=== PATIENT | male | born 1995 | race Asian ===

== ENCOUNTER 2016-12-17 18:10 | Emergency (ER) | payer BC ==
[~2016-12-17] VITALS: Ht 167.6 cm; Wt 70.2 kg
[2016-12-17 18:21] VITALS: Ht 167.6 cm; Wt 70.2 kg
[2016-12-17] MEDS ORDERED: PIPERACILLIN/TAZOBACTAM 4.5 GM/100ML D5W IV STA (20:12)
[2016-12-17] MEDS ORDERED: ACETAMINOPHEN IV 100 ML IV STA (20:12)
[2016-12-17] MEDS ORDERED: SODIUM CHLORIDE 0.9% 1000ML 1,000 ML IV STA ×3 (20:12→22:53)
[2016-12-17] MEDS ORDERED: ONDANSETRON INJ 2 MG/ML 2 ML VIAL IV STA (20:12)
[2016-12-17] MEDS ORDERED: MoRPHine SULFATE 4 MG/ML 1 ML CARP\\VIAL IV STA (20:12)
[2016-12-17] MEDS ORDERED: OPTIRAY 320 IV PRN (20:30)
--- NOTE | 2016-12-17 20:57 | EMERGENCY ROOM VISIT NOTE ---
History Report prepared by Mark: Dalton Leonard Under the Supervision of: Dr. Yakov Tanner M.D. First contact with patient: 20:00 Chief Complaint: ABDOMINAL PAIN Stated Complaint: LOW BACK PAIN,ABD PAIN Nursing Triage Summary: Pt states at 0445 woke up with really strong stomach cramp and diarrhea. 0800 had a tingling all over his body. Had similar tingling over the summer. Abd pain, lower middle abd Mid lower back pain. Denies cough. Denies urinary symtoms. History of Present Illness The patient is a 21 year old [place] male with a past medical history of psoriasis who presents to the ED with a cc of constant, lower, cramping, abdominal pain beginning early this morning. He currently rates his discomfort a 6/10 in severity. The patient states that he woke up at 0445 this morning with lower abdominal pain. He reports that after he woke up, he had a fever and intermittent diarrhea that prevented him from falling asleep easily. The patient notes that he was eventually able to fall asleep. He states that when he woke up to get ready for school, his lower back began to tingle. The patient reports that the tingling radiated to his arms. He notes that it lasted for about 6 hours, and he experienced discomfort after the tingling went away. The patient states that walking increased his discomfort, but he could tolerate it. He reports that he had similar symptoms before, but they were not as severe and did not last as long. The patient notes the first time he was able to urinate was when giving his sample. He states that he is currently taking medication for psoriasis. The patient reports that he occasionally consumes alcohol. He denies nausea, vomiting, recent travel, camping, being around others that are sick, cough, sorethroat, dysuria, hematuria, drug use, and tobacco use. Source of History: patient Onset: early this morning Position: abdomen (lower) Symptom Intensity: 6/10 Quality: cramping Timing: constant Modifying Factors (Worsening): movement Associated Symptoms: + fevers, No sorethroat, No cough, No nausea, No vomiting Note: Associated symptoms: tingling in his arms, decreased urination frequency Denies: recent travel, camping, being around others that are sick, dysuria, hematuria, drug use, and tobacco use. Review of Systems See HPI for pertinent positives and negatives. A total of ten systems were reviewed and were otherwise negative. Past Medical & Surgical Medical Problems: (1) Psoriasis Family History Patient reports no known family medical history. Social History Smoking Status: Never Smoker Smokeless Tobacco Use: No Alcohol Use: occasionally Drug Use: none Marital Status: single Occupation Status: [employer] student Current/Historical Medications Scheduled Ciprofloxacin Hcl (Cipro), 500 MG PO BID Metronidazole (Flagyl), 500 MG PO TID Ondasetron Odt (Zofran Odt), 4 MG SL Q6H Allergies Coded Allergies: No Known Allergies (Unverified , 12/17/16) Physical Exam Vital Signs Date Time Temp Pulse Resp B/P (MAP) Pulse Ox O2 Delivery O2 Flow Rate FiO2 12/18/16 00:46 82 18 100/52 96 12/18/16 00:35 87 12/17/16 23:17 37.0 98 18 101/72 96 Room Air 12/17/16 22:05 105 22 98 12/17/16 22:00 99 25 107/66 96 12/17/16 21:45 85 19 97 12/17/16 21:30 85 13 99/68 95 12/17/16 21:26 94/62 12/17/16 21:15 84 14 100 12/17/16 21:00 106 26 96 12/17/16 20:45 101 18 98 12/17/16 20:40 107 17 99 12/17/16 20:30 128/79 12/17/16 20:25 100 20 98 12/17/16 20:19 108 12/17/16 20:14 131/83 12/17/16 18:21 38.3 127 20 139/71 96 Room Air Physical Exam GENERAL: Awake, alert, well-appearing, NAD. Uncomfortable HENT: Normocephalic, atraumatic. EYES: Normal conjunctiva. Sclera non-icteric. NECK: Supple. No nuchal rigidity. FROM. RESPIRATORY: CTAB, no rhonchi, wheezing, crackles CARDIAC: Tachycardic rate and regular rhythm, no MRG ABDOMEN: Soft, ND, BS+. Suprapubic TTP, mild RLQ, negatie psoas and obturator. MSK: No chest wall TTP, no LE edema. Low T-spine TTP, no erythema, no caller, no fluctuantes. NEURO: GCS 15, CN 2-12 intact, moves all 4s on command SKIN: No rash or jaundice noted. Medical Decision & Procedures ER Provider Diagnostic Interpretation: Radiology results as stated below per my review and radiologist interpretation: CT OF THE ABDOMEN AND PELVIS WITH CONTRAST CLINICAL HISTORY: Periumbilical pain. Fever. Tachycardia. COMPARISON STUDY: None. TECHNIQUE: Following IV administration of 93 mL of Optiray-320, axial images of the abdomen and pelvis were obtained from the lung bases to the proximal femurs. Images were reviewed in the axial, sagittal, and coronal planes. IV contrast was administered without complication. A dose lowering technique was utilized adhering to the principles of ALARA. CT DOSE: 287.68 mGy.cm FINDINGS: Lung bases are clear. No pneumatosis, free air or portal venous gas is present. The liver, spleen, adrenal glands, kidneys and pancreas are normal. There is no evidence for a bowel obstruction. Portions of the colon are fluid-filled. The appendix is normal. There is mild wall thickening of the distal ileum. No abscess is identified. Major vasculature is patent within the abdomen and pelvis. There is no peripancreatic or pericholecystic infiltration. IMPRESSION: 1. Normal appendix. No bowel obstruction. 2. Mild wall thickening of the distal ileum. While this could be due to underdistention, the findings favor a nonspecific ileitis, likely infectious or inflammatory in etiology. 3. Fluid-filled colon which may reflect a diarrheal state. Electronically signed by: Natanael Solis M.D. 12/17/2016 10:41 PM Dictated Date/Time: 12/17/2016 10:34 PM Laboratory Results 12/17/16 21:20 Red Blood Count 5.27, Mean Corpuscular Volume 86.5, Mean Corpuscular Hemoglobin 31.3, Mean Corpuscular Hemoglobin Concent 36.2, Mean Platelet Volume 10.1, Neutrophils (%) (Auto) 77.4, Lymphocytes (%) (Auto) 9.2, Monocytes (%) (Auto) 12.7, Eosinophils (%) (Auto) 0.1, Basophils (%) (Auto) 0.4, Neutrophils # (Auto ) 6.42, Lymphocytes # (Auto) 0.76, Monocytes # (Auto) 1.05, Eosinophils # (Auto ) 0.01, Basophils # (Auto) 0.03 12/17/16 21:20 Test 12/17/16 21:20 12/17/16 21:25 12/17/16 23:50 White Blood Count 8.29 K/uL (4.8-10.8) Red Blood Count 5.27 M/uL (4.7-6.1) Hemoglobin 16.5 g/dL (14.0-18.0) Hematocrit 45.6 % (42-52) Mean Corpuscular Volume 86.5 fL (80-100) Mean Corpuscular Hemoglobin 31.3 pg (25-34) Mean Corpuscular Hemoglobin Concent 36.2 g/dl (32-36) Platelet Count 236 K/uL (130-400) Mean Platelet Volume 10.1 fL (7.4-10.4) Neutrophils (%) (Auto) 77.4 % Lymphocytes (%) (Auto) 9.2 % Monocytes (%) (Auto) 12.7 % Eosinophils (%) (Auto) 0.1 % Basophils (%) (Auto) 0.4 % Neutrophils # (Auto) 6.42 K/uL (1.4-6.5) Lymphocytes # (Auto) 0.76 K/uL (1.2-3.4) Monocytes # (Auto) 1.05 K/uL (0.11-0.59) Eosinophils # (Auto) 0.01 K/uL (0-0.5) Basophils # (Auto) 0.03 K/uL (0-0.2) RDW Standard Deviation 39.7 fL (36.4-46.3) RDW Coefficient of Variation 12.5 % (11.5-14.5) Immature Granulocyte % (Auto) 0.2 % Immature Granulocyte # (Auto) 0.02 K/uL (0.00-0.02) Anion Gap 9.0 mmol/L (3-11) Est Creatinine Clear Calc Drug Dose 95.8 ml/min Estimated GFR () 110.6 Estimated GFR (Non- 95.5 BUN/Creatinine Ratio 14.5 (10-20) Calcium Level 9.1 mg/dl (8.5-10.1) Total Bilirubin 0.5 mg/dl (0.2-1) Direct Bilirubin 0.2 mg/dl (0-0.2) Aspartate Amino Transf (AST/SGOT) 17 U/L (15-37) Alanine Aminotransferase (ALT/SGPT) 23 U/L (12-78) Alkaline Phosphatase 70 U/L (45-117) Total Protein 8.3 gm/dl (6.4-8.2) Albumin 4.4 gm/dl (3.4-5.0) Lipase 123 U/L (73-393) Urine Color DK YELLOW Urine Appearance CLEAR (CLEAR) Urine pH 5.0 (4.5-7.5) Urine Specific [place] 1.035 (1.000-1.030) Urine Protein NEG (NEG) Urine Glucose (UA) NEG (NEG) Urine Ketones 1+ (NEG) Urine Occult Blood TRACE (NEG) Urine Nitrite NEG (NEG) Urine Bilirubin NEG (NEG) Urine Urobilinogen NEG (NEG) Urine Leukocyte Esterase NEG (NEG) Urine WBC (Auto) 1-5 /hpf (0-5) Urine RBC (Auto) 5-10 /hpf (0-4) Urine Hyaline Casts (Auto) 1-5 /lpf (0-5) Urine Epithelial Cells (Auto) 0-5 /lpf (0-5) Urine Bacteria (Auto) NEG (NEG) Laboratory results reviewed by me Medications Administered Medications (Trade) Dose Ordered Sig/Sofya Route Start Time Stop Time Status Last Admin Dose Admin Sodium Chloride 1,000 ml @ 999 mls/hr Q1H1M STAT IV 12/17/16 20:12 12/17/16 21:12 DC 12/17/16 21:41 999 MLS/HR Ondansetron HCl (Zofran Inj) 4 mg NOW STAT IV 12/17/16 20:12 12/17/16 20:17 DC 12/17/16 21:42 4 MG Morphine Sulfate (MoRPHine SULFATE INJ) 4 mg NOW STAT IV 12/17/16 20:12 12/17/16 20:17 DC 12/17/16 21:44 4 MG Piperacillin Sod/ Tazobactam Sod (Zosyn Iv) 4.5 gm NOW STAT IV 12/17/16 20:12 12/17/16 20:17 DC 12/17/16 21:46 4.5 GM Sodium Chloride 1,000 ml @ 999 mls/hr Q1H1M STAT IV 12/17/16 20:12 12/17/16 21:12 DC 12/17/16 21:41 999 MLS/HR Acetaminophen 100 ml @ 400 mls/hr ONE STAT IV 12/17/16 20:12 12/17/16 20:26 DC 12/17/16 22:11 400 MLS/HR Sodium Chloride 1,000 ml @ 999 mls/hr Q1H1M STAT IV 12/17/16 22:53 12/17/16 23:53 DC 12/17/16 23:13 999 MLS/HR ED Course 2002: The patient was evaluated in room B10. A complete history and physical exam was performed. 2217: I reevaluated the patient and updated him of current exam findings. He is feeling better. 2253: I reevaluated the patient. He states that he thinks he has a family history of bowel obstructions. 0006: I reevaluated the patient. He looks well and feels better. I am waiting for his heart rate to decrease. 0029: I reevaluated the patient. Discussed results and discharge instructions: he verbalized understanding and agreement. The patient is ready for discharge. Medical Decision The patient is a 21 year old [place] male with a past medical history of psoriasis who presents to the ED with a cc of constant, lower, cramping, abdominal pain beginning early this morning. Differential diagnosis includes: pyelonephritis, kidney stone, obstructing stone, appendicitis, bowel obstruction. Patient was seen and evaluated. Patient did have some midline back pain however had no step-offs no erythema or calor. Patient did not have a history of IV drug abuse and had no lower extremity weakness numbness or tingling. Patient's abdomen was mildly tender over the suprapubic area. Patient had a CT as well as labs. Patient initially did have blood cultures as well as Zosyn empirically given given his tachycardia fever and abdominal pain. Patient was given 2 L of IV fluids patient's pain was significantly improved. Patient had a normal white count. Patient's UA did show some blood in the urine but no other signs of infection. Patient was given additional IV fluid patient was given by mouth which she tolerated without difficulty. Patient did have a little pressure of about 100/50. Patient however did not have any tachycardia. Patient had tolerated by mouth and was also given 3 L of fluid. Patient was told he had any worsening symptoms to return but at time of reevaluation patient was feeling much improved and wanting to go home. Patient no longer afebrile no longer tachycardic. On further questioning patient did admit that he had a family history of inflammatory bowel disease as his brother was recently diagnosed with Crohn's. Patient was able to give us a stool sample which was sent off for stool studies. The patient was feeling much improved and his tachycardia improved. Patient was told to hydrate well. Patient was also given follow-up with GI and told to follow up as an outpatient. Patient was also told to take Tylenol and Motrin in addition to the antibiotics as prescribed. Patient was given strict follow-up, discharge, return precautions. Patient agreed with care and patient was safely discharged home. Impression Primary Impression: Infectious colitis Additional Impression: Fever Scribe Attestation The scribe's documentation has been prepared under my direction and personally reviewed by me in its entirety. I confirm that the note above accurately reflects all work, treatment, procedures, and medical decision making performed by me. Departure Information Dispostion Home / Self-Care Prescriptions Metronidazole (FLAGYL) 500 Mg Tab 500 MG PO TID for 7 Days, #21 TAB Prov: Yakov Tanner M.D. 12/18/16 Ciprofloxacin Hcl (CIPRO) 500 Mg Tab 500 MG PO BID for 7 Days, #14 TAB Prov: Yakov Tanner M.D. 12/18/16 Ondasetron Odt (ZOFRAN ODT) 4 Mg Tab 4 MG SL Q6H for Nausea, #6 TAB Prov: Yakov Tanner M.D. 12/18/16 Referrals No Doctor, Assigned (PCP) Citlali Taveras M.D. [facility] Forms HOME CARE DOCUMENTATION FORM, IMPORTANT VISIT INFORMATION, School Instructions Return To School: 2 days Patient Instructions ED Colitis Ulcerative, My [facility] Additional Instructions Please return to the emergency department if you have worsening or recurrent symptoms not amenable to at-home treatment. Please call for a follow-up appointment with her primary care physician. Please take your medications as prescribed. If you have other concerns and/or complaints please feel free to also call your primary care physician's office or return the ED for further evaluation, management, and treatment. You may take Motrin ibuprofen 800 mg every 6 hours but no more than 3 200 hours in a given day. Please take with food and do not take for more than 2 consecutive days. He may take Tylenol 1000 mg every 6 hours up to 4000 mg in a 24-hour period. Please continue to hydrate and avoid things that may urinate which would include caffeinated beverages and alcohol. School Instructions Return To School: 2 days Problem Qualifiers Additional Impression: Fever Fever type: unspecified Qualified Codes: R50.9 - Fever, unspecified
[2016-12-17 21:40] LABS: BASO % 0.4 %; BASO ABS # 0.03 K/uL (0-0.2); COMPLETE YES; EOS % 0.1 %; HEMATOCRIT 45.6 % (42-52); IG% 0.2 %; LYMPH % 9.2 %; LYMPH ABS # 0.76 K/uL (1.2-3.4); MEAN CELL VOLUME 86.5 fL (80-100); MEAN CORPUSCULAR HEMOGLOBIN 31.3 pg (25-34); MEAN CORPUSCULAR HGB CONC 36.2 g/dl (32-36); MEAN PLATELET VOLUME 10.1 fL (7.4-10.4); MONO % 12.7 %; NEUT % 77.4 %; PLATELET COUNT 236 K/uL (130-400); RED BLOOD COUNT 5.27 M/uL (4.7-6.1); WHITE BLOOD COUNT 8.29 K/uL (4.8-10.8)
[2016-12-17 21:47] LABS: URINE APPEARANCE CLEAR (CLEAR); URINE COLOR DK YELLOW; URINE EPITHELIAL CELL AUTO 0-5 /lpf (0-5); URINE NITRITE NEG (NEG); URINE SPECIFIC GRAVITY 1.035 (1.000-1.030); UROBILINOGEN NEG (NEG); ZZUR CULT IF INDIC CLEAN CATCH NO
[2016-12-17 21:52] LABS: MANUAL MICROSCOPIC REQUIRED? NO; REVIEW REQ? NO; URINE BILIRUBIN NEG (NEG)
[2016-12-17 21:57] LABS: BUN/CREATININE RATIO 14.5 (10-20); CALCIUM 9.1 mg/dl (8.5-10.1); CREATININE 1.1 mg/dl (0.60-1.40); POTASSIUM 3.5 mmol/L (3.5-5.1)
--- NOTE | 2016-12-17 22:42 | DIAGNOSTIC IMAGING REPORT ---
CT OF THE ABDOMEN AND PELVIS WITH CONTRAST CLINICAL HISTORY: Periumbilical pain. Fever. Tachycardia. COMPARISON STUDY: None. TECHNIQUE: Following IV administration of 93 mL of Optiray-320, axial images of the abdomen and pelvis were obtained from the lung bases to the proximal femurs. Images were reviewed in the axial, sagittal, and coronal planes. IV contrast was administered without complication. A dose lowering technique was utilized adhering to the principles of ALARA. CT DOSE: 287.68 mGy.cm FINDINGS: Lung bases are clear. No pneumatosis, free air or portal venous gas is present. The liver, spleen, adrenal glands, kidneys and pancreas are normal. There is no evidence for a bowel obstruction. Portions of the colon are fluid-filled. The appendix is normal. There is mild wall thickening of the distal ileum. No abscess is identified. Major vasculature is patent within the abdomen and pelvis. There is no peripancreatic or pericholecystic infiltration. IMPRESSION: 1. Normal appendix. No bowel obstruction. 2. Mild wall thickening of the distal ileum. While this could be due to underdistention, the findings favor a nonspecific ileitis, likely infectious or inflammatory in etiology. 3. Fluid-filled colon which may reflect a diarrheal state. Electronically signed by: Natanael Solis M.D. 12/17/2016 10:41 PM Dictated Date/Time: 12/17/2016 10:34 PM
[2016-12-17 23:17] VITALS: TEMP 37
[2016-12-18] MEDS ORDERED: METR500T PO (00:24)
[2016-12-18] MEDS ORDERED: CIPR-255 PO (00:24)
[2016-12-18] MEDS ORDERED: ONDA4TAB10 SL (00:24)
[2016-12-18 00:46] VITALS: BP 100/52; PULSE 82; O2SAT 96
[2016-12-19 17:12] LABS: O&P GIARDIA AG NOT DETECTED (NOT DETECTED)
== END 2016-12-18 00:47 | disposition home or self-care (01) ==
LOC: C.EDB 18:12
DX: A09 Infectious gastroenteritis and colitis, unspecified (principal); R50.9 Fever, unspecified; R00.0 Tachycardia, unspecified; L40.9 Psoriasis, unspecified

== ENCOUNTER → 2017-06-10 | Outpatient (CLI) | payer BC ==
[~2017-06-10] MED LIST: CIPR-255 PO; ONDA4TAB10 SL
--- NOTE | 2017-06-11 06:27 | PAP/PSG TECHNICIAN REPORT ---
[facility] Hand Packer/Packager Polysomnogram Report Study name: None Report date: 06/11/2017 Study date: 06/10/2017 Referring Physician: DR. JCARLOS GUZMÁN Name: HENRY CALVERT Interpreting Physician: Alhaji Louis D.O. Date of : 1995 Hand Packer/Packager: TIFFANY Leonardo. Sex: Male Age: 22 Study Type: PSG Weight: 166 lbs Height: 22 years, Height 5' 4.5" BMI: 28.05 Medications: FLUTICASONE, TRIAMCINOLONE ACETONIDE 0.1% EX CREA Patient History 22 yr-old male here for a baseline study. He had a home sleep study done, but the results were inconclusive. He has a history of loud snoring and daytime sleepiness. His [place] scale is 14. The test was started on room air. ETCO2 testing was not utilized during this study. Room 3 Parameters Monitored NPSG: E1-M2, E2-M1, Fp1-M2, Fp2-M1, F3-M2, F4-M2, F4-M1, C3-M2, C4-M2, C4-M1, O1-M2, O2-M2, O2-M1, T3-M2, T4-M1, P3-M2, P4-M1, CHIN1, CHIN2, HR, EKG, Legs, PFLOW, SNOR, FLOW, CFLOW, Tidal Volume, THOR, ABDO, SpO2, PLTH, CPRESS, ETCO2 Wave, ETCO2, pH Sleep Architecture Sleep Stages Time at Lights Off 10:32:03 PM STAGES Time (min.) TST (%) Time at Lights On 5:51:03 AM Wake 21.0 -- Total Recording Time (TRT) 439.00 min. N1 38.0 9 Total Sleep Period (TSP) 433.0 min. N2 247.0 59 Total Sleep Time (TST) 418.0min. N3 51.0 12 Awake Time 21.0 min. REM 82.0 20 Wake after Sleep Onset 15.5 min. Sleep Efficiency (SE) 95 % Sleep Onset Latency (WILBUR) 5.5 min. Number of Stage 1 Shifts None Awakenings 15 Stage Changes 81 Number of REM periods 7 REM 82.0 20 REM Latency 102.0 min. NREM 336.0 80 Body Position Analysis Supine Right Left Side Prone Vertical Total Sleep Time (min.) 187.1 24.5 215.3 239.81 0.0 0.0 Total Sleep Time (%) 43% 6% 52% 57 0% N/A% Total Sleep Time REM (min.) 19.1 0.0 62.9 None 0.0 0.0 Total Sleep Time NREM (min.) 159.1 24.5 152.4 None 0.0 0.0 Intermittent Wake (min.) 8.9 2.8 9.3 None 0.0 0.0 Total Sleep Period (%) 42% None None None None None Arousals Myoclonus (PLM) * Events Count Index Events Count Index Spontaneous 33 5 Events Awake (PLMW) 19 54.3 Respiratory 1 0.3 Events Asleep w/ Arousal (PLMA) 25 3.6 PLM 25 4 Events Asleep w/o Arousal (PLMS) 125 17.9 Snoring 2 0 Total Asleep 150 21.5 Total 61 9 Total 169 23 Respiratory Analysis * CA OA MA CH H RERA Total Count 0 0 0 0 15 0 15 Index 0.0 0.0 0.0 0 2.2 0 2.2 Mean Duration 0.0 0.0 0.0 0.00 19.0 0.0 19.0 Longest Duration 0.0 0.0 0.0 0.00 0.0 0.0 24.3 Respiratory Event Summary Total Supine ~Supine Right Left Prone REM NREM Apneas Count 0 0 0 0 0 N/A 0 0 Index 0.0 0 0 0.0 0.0 N/A 0 0 Hypopneas (4% Desat) Count 15 10 5 0 5 N/A 12 3 Index 2.2 3.4 1 0.0 1.4 N/A 8.8 0.5 Apneas & All Hypopneas Count 15 10 5 0 5 N/A 12 3 Index 2.2 3 1 0 1 N/A 8.8 0.5 Respiratory Events (Alignment Technician+All Hyp+RERA) Count 15 10 5 0 5 N/A 12 3 Index 2.2 3 1 0.0 1.4 N/A 8.8 0.5 Respiratory Related Arousal Count 1 10 1 0 1 N/A 1 1 Index 0.3 0 0 0 0 N/A 1 0 Snoring Analysis Supine Right Left Prone REM NREM Total Snore duration 14.0 min Snores count 616 1 26 N/A 33 610 643 Snore mean duration 1.3 Sec Snores index 207 2 7 N/A 24.1 108.9 92.3 TST with snoring (%) 3.4% Desaturation Event Summary: Minimum %SpO2 Event Count Mean/Min/Max Duration(sec.) Desaturation Index % Time In Bed > 90 26 27.1 / 9.0 / 57.3 3.6 99.4 86 - 90 0 N/A 0.0 0.6 81 - 85 0 N/A 0.0 0.0 76 - 80 0 N/A 0.0 0.0 71 - 75 0 N/A 0.0 0.0 66 - 70 0 N/A 0.0 0.0 61 - 65 0 N/A 0.0 0.0 56 - 60 0 N/A 0.0 0.0 51 - 55 0 N/A 0.0 0.0 < 50 0 N/A 0.0 0.0 Total REM NREM Awake <50% 0.0 min. 0.0 min. 0.0 min. 0.0 min. 51 - 60% 0.0 min. 0.0 min. 0.0 min. 0.0 min. 61 - 70% 0.0 min. 0.0 min. 0.0 min. 0.0 min. 71 - 80% 0.0 min. 0.0 min. 0.0 min. 0.0 min. 81 - 90% 2.7 min. 1.6 min. 1.0 min. 0.0 min. 91 - 100% 436.1 min. 80.4 min. 334.9 min. 20.8 min. Average 94 94 94 95 Minimum SpO2 88 88 88 90 Desaturation Event Index 3.6 10.2 1.3 17.1 # Desat. Events below 89% 2 1 1 N/A Time(%) with Saturation below 89% 0.0 0.0 0.0 0.0 Time(min.) with Saturation below 89% 0.2 0.1 0.1 0.0 Time (mins) REM (mins) NREM (mins) % of TST SpO2 Below 90% 6 4 N2 0.2 SpO2 Below 88% 1 0 0 0 Heart Rate Analysis Min (bpm) Max (bpm) Average (bpm) Awake 46 89 59 NREM 39 93 51 REM 41 83 53 Overall 39 93 52 Supplemental O2 Values Minimum O2 level: None Value Start Time End Time Hand Packer/Packager Comments Mr. Calvert slept in the right, left, and supine positions. No cardiac arrhythmias were noted. Some PLMs were noted. No bruxism noted. Snoring was noted and scored as a 2 on a scale of 1 through 5. (0=no snoring, 5=snoring loud enough to be heard through a closed door or down the rodrigue[address] way). He did not wake up to use the restroom during the night. Mr. Calvert stated that he slept about the same as usual. The final report will be interpreted and signed by a sleep physician. The completed physician report will then be placed in the patient medical record. Therapy (cm H2O) 0 TIB (min.) 439.0 TST (min.) 418.0 Sleep Onset (min.) 5.5 REM Onset From Sleep (min.) 102.0 Sleep Efficiency % 95 Wakefulness (%) 5 Wakefulness (min.) 21.0 NREM 1 (%) 9 NREM 1 (min.) 38.0 NREM 2 (%) 59 NREM 2 (min.) 247.0 NREM 3 (%) 12 NREM 3 (min.) 51.0 REM (%) 20 REM (min.) 82.0 # Arousals 61 Arousal Index 9 # Snore 643 Snore Index 92.3 AHI 2.2 AHI Supine 3 AHI Non-Supine 1 NREM AHI 0.5 REM AHI 8.8 RDI 2.2 # Obstructive Apnea 0 # Central Apnea 0 # Mixed Apnea 0 # Hypopneas 15 RERAs 0 Total Respiratory Events 15 Time Below SpO2 89% (min.) 0.2 Mean NREM SpO2 (%) 94 Mean REM SpO2 (%) 94 Mean Sleep SpO2 (%) 94 Min NREM SpO2 (%) 88 Min REM SpO2 (%) 88 Position Supine (min.) 187.1 Position Non-supine (min.) 239.8 LM Index Sleep 21.5 LM Index NREM 20.9 LM Index REM 24.1 Mean Heart Rate (bpm) 52 Min Heart Rate (bpm) 39
--- NOTE | 2017-06-16 08:28 | Sleep Study ---
Sleep Study Report Date of Service: 06/10/2017 Sleep Study Report CLINICAL DATA: The patient is a 22-year-old male with a history of snoring, not feeling rested , fatigue. He completed the Odonnell Sleepiness Scale and had a score of 14. He recently had a home sleep study done elsewhere. His apnea-hypopnea index was reported as 1.6. He is referred by Dr. Darwin Uriarte for an in-lab polysomnography. His BMI is 28.05. SLEEP ARCHITECTURE: The sleep period time was 433 minutes. The total sleep time was 418 minutes. Sleep efficiency was normal at 95 percent. The sleep latency was normal at 5.5 minutes. Wake after sleep onset was 15.5 minutes. REM latency was normal at 102 minutes. Sleep consisted of stage N1 9 percent, stage N2 59 percent, stage N3 12 percent, stage REM 20 percent. AROUSAL DATA: The patient had a total of 61 arousals including 33 spontaneous arousals, 1 respiratory arousal, 25 PLM arousals, and 2 snoring arousals. The arousal index was 9. PLM DATA: The patient had 150 periodic limb movements of sleep for a PLM index of 21.5. There were 25 arousals associated with limb movements for a PLM index of only 3.6. EKG: The cardiac rates 39-93 beats per minute. The average heart rate was 52 beats per minute. No a arrhythmias were noted. RESPIRATORY DATA: The patient had a total of 15 respiratory events, all hypopneas. Hypopneas were scored according to the 4 percent desaturation rule. The mean duration of the hypopneas was 19 seconds. The apnea-hypopnea index was 2.2 events per hour. This would suggest no significant sleep apnea. OXIMETRY DATA: The average saturation for the night was 94 percent. The minimum saturation was 88 percent. There was a total of 0.2 minutes with saturations less than 89 percent. DISTRIBUTION SYSTEMS SUPERINTENDENT COMMENTS: The patient slept on the right, left, and supine positions. No cardiac arrhythmias were noted. Some PLMS were noted. No bruxism noted. Snoring was noted and scored as a 2 on a scale of 1 through 5. He did not awaken to use the restroom during the night. IMPRESSIONS: 1. No evidence of significant obstructive sleep apnea 2. Some increase in periodic limb movements 3. Primary snoring COMMENTS: The patient has no evidence of significant obstructive sleep apnea. He did have a modest snoring. There was some increase in limb movements. Clinical correlation is required to determine if he has any symptoms related to limb movements. RECOMMENDATIONS: 1. The patient should be advised of the appropriate principles of sleep hygiene. This would include having a regular sleep-wake schedule and allowing 8 hours of sleep time per night. 2. It would be advised that the patient avoid sleeping in the supine position. Typically there is more snoring and respiratory events while supine. 3. A clinical history should be obtained as to whether not the patient might have true restless leg syndrome. 4. Patient has a history of daytime somnolence. In someone who is young and has excessive daytime somnolence despite good sleep habits, consideration may need to be given to the possibility of narcolepsy. Patient should be questioned regarding symptoms that may correlate with narcolepsy including sleep paralysis, nocturnal hallucinations, and cataplexy. If narcolepsy is thought to be a significant possibility, the patient for testing would require an overnight sleep study to be followed by multiple sleep latency testing. Copies To 1: Alhaji Louis DO; Darwin Uriarte MD
== END | disposition home or self-care (01) ==
LOC: C.NEUR 21:00
PROVIDERS: ATTEND Family Medicine
DX: G47.30 Sleep apnea, unspecified (principal)

== ENCOUNTER → 2017-07-25 | Day surgery (SDC) | payer BC ==
[2017-07-15 13:37] VITALS: Ht 167.6 cm; Wt 70.0 kg
[~2017-07-25] VITALS: Ht 167.6 cm; Wt 70.0 kg
[~2017-07-25] MED LIST changes: +CHOL2000 PO; -CIPR-255 PO; +FLUT0.15 NAE; +LIDOCAINE HCL 2% 2 ML VIAL (20MG/ML) ONE; +MIDAZOLAM HCL 1 MG/ML 2ML VIAL ONE; -ONDA4TAB10 SL; +PROPOFOL IV EMULSION 10 MG/ML 20 ML VIAL IV ONE; +SODIUM CHLORIDE 0.9% 500ML 500 ML IV ONE; +TRMO115 TOP
--- NOTE | 2017-07-25 10:36 | Endo History and Physical ---
History & Physical Date of Service: Jul 25, 2017. Chief Complaint: Abnormal CT, Diarrhea, Family h/o of Crohns Referring Physician: Flor Ogden History of Present Illness 22 yo male who presents for colonoscopy secondary to abnormal CT scan, diarrhea and family history of Crohn's Disease. Past Surgical History Hx Cardiac Surgery: No Hx Internal Defibrillator: No Hx Pacemaker: No Hx Abdominal Surgery: No Hx of Implantable Prosthesis: No Hx Post-Op Nausea and Vomiting: No Hx Cancer Surgery: No Hx Thoracic Surgery: No Hx Orthopedic: No Hx Urinary Tract Surgery: Yes (CIRCUMCISION AGE 5) Family History Esophogeal CA, IBD Social History Smoking Status: Never Smoker Hx Substance Use: Yes (USED MARIJUANA USE 1-2 TIMES ONLY) Hx Alcohol Use: Yes (OCCASIONAL) Allergies Coded Allergies: No Known Allergies (Unverified , 07/25/17) Current Medications Reported Home Medications Medications Dose Route/Sig Max Daily Dose Days Date Category Flonase Allergy Relief (Fluticasone Propionate (Nasal)) 50 Mcg/Act Spr 2 Sprays JOSEF DAILY PRN 07/15/17 Reported Vitamin D3 (Cholecalciferol) 2,000 Unit Cap 4,000 Inter.unit PO DAILY 07/15/17 Reported Triamcinolone Acetonide (Triamcinolone Acet) 45 Appln/15 Gm Oint 1 Appln TOP BID 07/15/17 Reported Vital Signs Weight (Kilograms): 70 Height (Feet): 5 Height (Inches): 6 Date Time Temp Pulse Resp B/P (MAP) Pulse Ox O2 Delivery O2 Flow Rate FiO2 07/25/17 10:26 36.6 50 16 132/76 (94) 98 Room Air Physical Exam General Appearance: WD/WN, no apparent distress Respiratory/Chest: Auscultation: breath sounds normal Cardiovascular: Heart Auscultation: RRR Abdomen: Bowel Sounds: normal Inspection & Palpation: soft, non-distended, no tenderness, guarding & rebound Assessment and Plan Assessment: 22 yo male who presents for colonoscopy secondary to abnormal CT scan, diarrhea and family history of Crohn's Disease. Plan: Proceed with colonoscopy.
--- NOTE | 2017-07-25 11:43 | Discharge Instructions ---
Endoscopy Patient Instructions Date / Procedure(s) Performed Jul 25, 2017. Colonoscopy Allergy Information Coded Allergies: No Known Allergies (Unverified , 07/25/17) Discharge Date / Findings Jul 25, 2017. Random colon biopsies Stool aspirate collected Medication Instructions OK to resume all medications today as prescribed Reported Home Medications Medications Dose Route/Sig Max Daily Dose Days Date Category Flonase Allergy Relief (Fluticasone Propionate (Nasal)) 50 Mcg/Act Spr 2 Sprays JOSEF DAILY PRN 07/15/17 Reported Vitamin D3 (Cholecalciferol) 2,000 Unit Cap 4,000 Inter.unit PO DAILY 07/15/17 Reported Triamcinolone Acetonide (Triamcinolone Acet) 45 Appln/15 Gm Oint 1 Appln TOP BID 07/15/17 Reported Provider Instructions Activity Restrictions - No exercising or heavy lifting for 24 hours. - Do not drink alcohol the day of the procedure. - Do not drive a car or operate machinery until the day after the procedure. - Do not make any important decisions or sign important papers in 24 hours after the procedure. Following Day: - Return to full activity which may include returning to work/school. Diet Start your diet with liquids and light foods (jello, soup, juice, toast). Then eat your usual diet if not nauseated. Treatment For Common After Affects For mild abdominal pain, bloating, or excessive gas: - Rest - Eat lightly - Lie on right side Follow-Up Information Follow-up with as scheduled Anesthesia Information What You Should Know You have had a procedure that required some medicine to reduce anxiety and discomfort. This treatment is called moderate sedation. After receiving the treatment, you may be sleepy, but you will be able to breathe on your own. The effects of the treatment may last for several hours. Follow these instructions along with Activity/Diet recommendations noted above: * Do NOT do anything where dizziness or clumsiness would be dangerous. * Rest quietly at home today, then you can be up and about tomorrow. * Have a responsible person stay with you the rest of today. * You may have had an I.V. today. If so, you may take the dressing off later today. Recommendations Call your doctor if: * Trouble breathing * Continuous vomiting for more than 24 hours * Temperature above 101 degrees * Severe abdominal pain or bloating * Pain not relieved by pain medicine ordered * There is increased drainage or redness from any incision * A large amount of rectal bleeding greater than 2-3 tablespoons. (If you had a polyp/s removed or have hemorrhoids, a small amount of blood - from the rectum is to be expected.) * You have any unanswered questions or concerns. IN THE EVENT OF A SERIOUS EMERGENCY, GO TO THE NEAREST EMERGENCY ROOM Your discharge instructions were prepared by provider Perry Treviño. Patient Instructions Signature Page Dalton Hernandez Patient (or Guardian) Signature/Date: I have read and understand the instructions given to me by my caregivers. Caregiver/RN/Doctor Signature/Date: The above-named patient and/or guardian has received patient instructions on this date. + Original Patient Signature Page (only) stays with chart. Please make copy for patient.
--- NOTE | 2017-07-25 11:55 | GI REPORT ---
Procedure Date: 07/25/2017 11:05 AM Procedure: Colonoscopy Indications: Chronic diarrhea, Abnormal CT of the GI tract Medicines: Monitored Anesthesia Care Complications: No immediate complications. Estimated Blood Loss: Estimated blood loss: none. Procedure: Pre-Anesthesia Assessment: - Prior to the procedure, a History and Physical was performed, and patient medications and allergies were reviewed. The patient's tolerance of previous anesthesia was also reviewed. The risks and benefits of the procedure and the sedation options and risks were discussed with the patient. All questions were answered, and informed consent was obtained. Prior Anticoagulants: The patient has taken no previous anticoagulant or antiplatelet agents. ASA Grade Assessment: II - A patient with mild systemic disease. After reviewing the risks and benefits, the patient was deemed in satisfactory condition to undergo the procedure. After I obtained informed consent, the scope was passed under direct vision. Throughout the procedure, the patient's blood pressure, pulse, and oxygen saturations were monitored continuously. The scope was introduced through the anus and advanced to the terminal ileum. The colonoscopy was performed without difficulty. The patient tolerated the procedure well. The quality of the bowel preparation was good. The terminal ileum, ileocecal valve, appendiceal orifice, and rectum were photographed. Findings: The perianal and digital rectal examinations were normal. Several random biopsies were obtained with cold forceps for histology in the entire colon. Fluid aspiration for Stool studies was performed in the entire colon. Impression: - Several random biopsies were obtained in the entire colon. - Fluid aspiration was performed. Recommendation: - Resume previous diet. - Continue present medications. - Repeat colonoscopy for surveillance based on pathology results. - Return to primary care physician as previously scheduled. Perry Treviño DO 07/25/2017 11:54:40 AM This report has been signed electronically. Note Initiated On: 07/25/2017 11:05 AM I attest to the content of the Intraoperative Record and orders documented therein, exceptions below
[2017-07-25 12:10] VITALS: BP 120/63; PULSE 53; O2SAT 96
--- NOTE | 2017-07-25 12:24 | Anesthesiology Progress Note ---
Anesthesia Post Op Note Date & Time Jul 25, 2017 at 12:23 Vital Signs Pain Intensity: 0 Vital Signs Past 12 Hours Date Time Temp Pulse Resp B/P (MAP) Pulse Ox O2 Delivery O2 Flow Rate FiO2 07/25/17 12:10 53 18 120/63 (82) 96 Room Air 07/25/17 11:53 53 18 104/58 (73) 96 Room Air 07/25/17 11:38 36 69 18 99/50 (66) 97 Room Air 07/25/17 10:26 36.6 50 16 132/76 (94) 98 Room Air Notes Mental Status: alert / awake / arousable, participated in evaluation Pt Amnestic to Procedure: Yes Nausea / Vomiting: adequately controlled Pain: adequately controlled Airway Patency, RR, SpO2: stable & adequate BP & HR: stable & adequate Hydration State: stable & adequate Anesthetic Complications: no major complications apparent
== END | disposition home or self-care (01) ==
LOC: C.GI 09:43
PROVIDERS: ATTEND Internal Medicine
DX: K52.9 Noninfective gastroenteritis and colitis, unspecified (principal); R93.3 Abnormal findings on diagnostic imaging of other parts of digestive tract; Z83.79 Family history of other diseases of the digestive system; Z98.890 Other specified postprocedural states; Z80.0 Family history of malignant neoplasm of digestive organs